=== PATIENT | male | born 1995 | race Caucasian/White ===

== ENCOUNTER 2016-09-30 02:26 | Emergency (ER) | payer OTHER ==
[~2016-09-30] VITALS: Ht 167.6 cm; Wt 89.5 kg
[~2016-09-30 02:26] MED LIST: CALC400T19 PO; OMEP20CA9 PO
[2016-09-30 02:39] VITALS: Ht 167.6 cm; Wt 89.5 kg
[2016-09-30] MEDS ORDERED: PANT40TA3 PO (03:16)
[2016-09-30] MEDS ORDERED: PANTOPRAZOLE (EC) 40 MG TAB PO ONE (03:30)
[2016-09-30] MEDS ORDERED: LIDOCAINE/MYLANTA 40 ML BTL PO ONE (03:30)
[2016-09-30 03:31] VITALS: BP 136/84; PULSE 70; RESP 17; TEMP 97.5
--- NOTE | 2016-09-30 04:45 | ERD ---
ER Documentation Chief Complaint Date/Time DATE: 09/30/16 TIME: 04:44 Chief Complaint diarrhea started last night at 1800 10x, abd pressure pain HPI Patient is a 20-year-old male with no medical problems who presents with abdominal pain. The patient has midepigastric abdominal pain which started at 6 PM after eating [employer]. The pain is sharp in nature and comes and goes. He has had no treatment as of yet. He has no fevers. He has had belching and feels an acid taste in his mouth. He does not currently have a primary doctor. Upon review of old medical records this is the patient's fifth visit to the ER. ROS All systems reviewed and are negative except as per history of present illness. Medications Home Meds Active Scripts Pantoprazole* (Protonix*) 40 Mg Tablet., 40 MG PO DAILY, #20 TAB Prov:RUSTY JOSEPH MD 09/30/16 Calcium Carbonate* (Tums* Ultra) 1,000 Mg Tab.chew, 1000 MG PO TID Y for epigastic pain, #30 TAB.CHEW Prov:DANITA CARBONE. PROTECTIVE SIGNAL OPERATOR 10/08/15 Omeprazole* (Prilosec*) 20 Mg Capsule., 20 MG PO DAILY for 14 Days, CAP Prov:DANITA CARBONE. PROTECTIVE SIGNAL OPERATOR 10/08/15 Allergies Allergies: Coded Allergies: No Known Allergy (Unverified , 04/22/12) PMhx/Soc Medical and Surgical Hx: pt denies Medical Hx History of Surgery: No Anesthesia Reaction: No Hx Neurological Disorder: No Hx Respiratory Disorders: No Hx Cardiac Disorders: No Hx Psychiatric Problems: No Hx Miscellaneous Medical Probl: No Hx Alcohol Use: No Hx Substance Use: No Hx Tobacco Use: No Smoking Status: Never smoker FmHx Family History: No diabetes Physical Exam Vitals Vital Signs Date Time Temp Pulse Resp B/P Pulse Ox O2 Delivery O2 Flow Rate FiO2 09/30/16 03:31 97.5 70 17 136/84 98 Room Air 09/30/16 02:39 97.5 63 18 134/89 96 Physical Exam Const: No acute distress Head: Atraumatic Eyes: Normal Conjunctiva ENT: Normal External Ears, Nose and Mouth. Neck: Full range of motion..~ No meningismus. Resp: Clear to auscultation bilaterally Cardio: Regular rate and rhythm, no murmurs Abd: Soft, non tender, non distended. Normal bowel sounds Skin: No petechiae or rashes Back: No midline or flank tenderness Ext: No cyanosis, or edema Neur: Awake and alert Psych: Normal Mood and Affect Results 24 hrs Current Medications Medications (Trade) Dose Ordered Sig/Monalisa Route PRN Reason Start Time Stop Time Status Last Admin Dose Admin Miscellaneous Medication (Gi Cocktail (2)) 40 ml ONCE ONCE PO 09/30/16 03:30 09/30/16 03:31 DC 09/30/16 03:23 Pantoprazole (Protonix Tab) 40 mg ONCE ONCE PO 09/30/16 03:30 09/30/16 03:31 DC 09/30/16 03:23 Procedures/[facility] Patient is a 20-year-old male presents with abdominal pain and belching. I believe the patient likely has reflux or gastritis and at this point I doubt cholecystitis, pancreatitis, appendicitis, or bowel obstruction. I believe outpatient management is appropriate. I do not believe he requires further workup. The patient was given a GI cocktail and Protonix. I will give him a prescription for Protonix as well. The patient can return sooner for any worsening symptoms. He should follow-up with primary doctor within 24 hours and I will give him information regarding the local clinics. Departure Diagnosis: Primary Impression: Abdominal pain Abdominal location: epigastric Qualified Code: R10.13 - Epigastric pain Additional Impression: Diarrhea Diarrhea type: unspecified type Qualified Code: R19.7 - Diarrhea, unspecified type Condition: Fair Patient Instructions: Abdominal Pain, Treating Diarrhea Referrals: [facility] YOU HAVE RECEIVED A MEDICAL SCREENING EXAM AND THE RESULTS INDICATE THAT YOU DO NOT HAVE A CONDITION THAT REQUIRES URGENT TREATMENT IN THE EMERGENCY DEPARTMENT. FURTHER EVALUATION AND TREATMENT OF YOUR CONDITION CAN WAIT UNTIL YOU ARE SEEN IN YOUR DOCTORS OFFICE WITHIN THE NEXT 1-2 DAYS. IT IS YOUR RESPONSIBILITY TO MAKE AN APPOINTMENT FOR FOLOW-UP CARE. IF YOU HAVE A PRIMARY DOCTOR --you should call your primary doctor and schedule an appointment IF YOU DO NOT HAVE A PRIMARY DOCTOR YOU CAN CALL OUR PHYSICIAN REFERRAL HOTLINE AT IF YOU CAN NOT AFFORD TO SEE A PHYSICIAN YOU CAN CHOSE FROM THE FOLLOWING [facility] [address] [facility]. [facility] [address] [facility] [address] [facility] [address] [facility] [address] [facility] [address] Additional Instructions: Call your primary care doctor TOMORROW for an appointment during the next 1-2 days.See the doctor sooner or return here if your condition worsens before your appointment time. RUSTY JOSEPH MD Sep 30, 2016 04:45
== END 2016-09-30 03:31 | disposition home or self-care (01) ==
LOC: E/R 02:26
DX: R10.13 Epigastric pain (principal); R19.7 Diarrhea, unspecified
CPT/HCPCS: Z7610 ×2; 99283